=== PATIENT | male | born 1980 | race Caucasian/White ===

== ENCOUNTER 2019-04-07 09:49 | Outpatient (CLI) | payer OTHER ==
[2019-04-07 10:59] LABS: *BILIRUBIN,URIN NEGATIVE (NEGATIVE); *BLOOD, URINE NEGATIVE (NEGATIVE); *CLARITY,URINE CLEAR (CLEAR); *COLOR,URINE YELLOW (YELLOW); *KETONES,URINE NEGATIVE (NEGATIVE); *UROBILINOGEN,URINE 0.2 E.U./dl (NORMAL); LEUKOCYTE ESTERASE ,URINE NEGATIVE (NEGATIVE); NITRITE, URINE NEGATIVE (NEGATIVE); PH,URINE 5.5 (5.0-8.0); UGLUCOSE NEGATIVE (NEGATIVE)
[2019-04-07 11:00] LABS: BASOPHILS # (AUTO) 0.1 K/uL (0.0-8.0); BASOPHILS % (AUTO) 1.4 % (0.0-2.0); EOSINOPHILS # (AUTO) 0.2 K/uL (0.0-0.7); EOSINOPHILS % (AUTO) 3.8 % (0.0-7.0); HEMATOCRIT 52.5 % (36.7-47.1); LYMPHOCYTES # (AUTO) 1.5 K/uL (20.0-40.0); LYMPHOCYTES % (AUTO) 23.6 % (20.5-51.5); MEAN CORPUSCULAR HGB CONC 32 g/dL (32.5-36.3); MEAN CORPUSCULAR VOLUME 89.5 fL (73.0-96.2); MONOCYTES # (AUTO) 0.6 K/uL (2.0-10.0); MONOCYTES % (AUTO) 9.1 % (0.0-11.0); NEUTROPHILS % (AUTO) 62.1 % (38.5-71.5); PLATELET COUNT (AUTO) 262 K/uL (152-348); RED BLOOD CELL COUNT(AUTO) 5.87 MIL/uL (4.06-5.63); WHITE BLOOD COUNT (AUTO) 6.5 K/uL (3.6-10.2)
[2019-04-07 11:05] LABS: CREATININE 1.2 mg/dL (0.6-1.3); POTASSIUM 4.4 mmol/L (3.5-5.1)
[2019-04-07 11:11] LABS: BILIRUBIN,TOTAL 0.3 mg/dL (0.2-1.0); TOTAL PROTEIN, SERUM 7.5 g/dL (6.4-8.2)
== END 2019-04-07 23:59 | disposition home or self-care (01) ==
LOC: LAB 09:49
PROVIDERS: ATTEND Orthopaedic Surgery
DX: J98.11 Atelectasis (principal); Z85.47 Personal history of malignant neoplasm of testis; Z90.79 Acquired absence of other genital organ(s); Z90.5 Acquired absence of kidney; Z83.3 Family history of diabetes mellitus
CPT/HCPCS: 36415; 71045; 85025; 85730; 93005; A4663

== ENCOUNTER 2019-04-09 07:42 | Day surgery (SDC) | payer OTHER ==
[2019-04-09] MEDS ORDERED: ONDANSETRON 4 MG/2 ML VIAL IV ONE (07:43)
[2019-04-09] MEDS ORDERED: IV NORMAL SALINE 1000 ML BAG IV ONE (07:43)
[2019-04-09] MEDS ORDERED: KETOROLAC TROMETHAMINE 30 MG INJ IM ONE (07:43)
[2019-04-09] MEDS ORDERED: CEFAZOLIN 1 G VIAL IM ONE (07:43)
[2019-04-09] MEDS ORDERED: METOCLOPRAMIDE HCL 10 MG/2 ML VIAL IV ONE (07:43)
[2019-04-09] MEDS ORDERED: SEVOFLURANE 250 ML BOTTLE IH ONE (07:43)
[2019-04-09] MEDS ORDERED: PROPOFOL 200 MG/20 ML BOTTLE IV ONE (07:43)
[2019-04-09] MEDS ORDERED: BUPIVACAINE/EPI PF 0.5% 10 ML VIAL ONE (09:56)
[2019-04-09] MEDS ORDERED: BUPIVACAINE PF 0.5% 30 ML VIAL ONE (09:56)
[2019-04-09] MEDS ORDERED: MORPHINE SULFATE PF 10 MG/10 ML AMPUL IV ONE (09:56)
[2019-04-09] MEDS ORDERED: MIDAZOLAM HCL 2 MG/2 ML VIAL ONE (10:12)
[2019-04-09] MEDS ORDERED: FENTANYL CITRATE 250 MCG/5 ML AMPUL ONE (10:12)
[2019-04-09] MEDS ORDERED: FENTANYL CITRATE 100 MCG/2 ML AMPUL ONE (11:25)
[2019-04-09] MEDS ORDERED: ONDANSETRON 4 MG/2 ML VIAL ONE (11:41)
[2019-04-09] MEDS ORDERED: BUPIVACAINE 0.25% 30 ML VIAL ONE (12:04)
[2019-04-09] MEDS ORDERED: TRAMADOL HCL 50 MG TABLET ONE (12:25)
== END 2019-04-09 13:30 | disposition home or self-care (01) ==
LOC: DS 07:42
PROVIDERS: ATTEND Orthopaedic Surgery
DX: M94.261 Chondromalacia, right knee (principal); M65.88 Other synovitis and tenosynovitis, other site; K21.9 Gastro-esophageal reflux disease without esophagitis; F15.90 Other stimulant use, unspecified, uncomplicated; Z85.47 Personal history of malignant neoplasm of testis; Z98.890 Other specified postprocedural states; Z88.8 Allergy status to other drugs, medicaments and biological substances
CPT/HCPCS: J0690; J1885; J2250; J2274; J2405; J2765; J3010; J3490; J7030; J7120